=== PATIENT | female | born 1960 | race Caucasian/White ===

== ENCOUNTER 2023-01-26 05:42 | Emergency (ER) | payer OTHER ==
--- NOTE | 2023-01-26 07:29 | ED Physician Documentation ---
PD HPI Fall - Stated complaint Stated Complaint: GLF - Chief complaint Chief Complaint: General - History obtained from History obtained from: Patient - History of Present Illness Mechanism of injury: Tripped Fall distance: Standing position Timing - onset: Last night (fell to right side and landed on hip/gluteal and shoulder on right. Pain with walking.) Injury(ies) location: Right Upper Extremity (scapular area of shoulder), Right Lower Extremity (lateral hip/gluteal and ramus area. With local firm swelling and tender.). No: Head, Neck, Chest, Abdomen Review of Systems Neurologic: denies: Focal weakness, Numbness PD PAST MEDICAL HISTORY - Past Medical History Cardiovascular: None Neuro: None - Present Medications Home Medications: Ambulatory Orders Medication Instructions Recorded Confirmed Ascorbic Acid [Vitamin C] 01/26/23 Aspirin [[place] Aspirin] 01/26/23 Atorvastatin [Lipitor] 01/26/23 Empagliflozin [Jardiance] 01/26/23 Empagliflozin [Jardiance] 25 mg PO 01/26/23 Estradiol [Estrace] 0.5 mg PO 01/26/23 Ezetimibe [Zetia] 10 mg PO QD 01/26/23 01/26/23 Fluticasone/Salmeterol [Advair 01/26/23 250-50 Diskus] Insulin Glargine [Lantus Solostar] 01/26/23 Losartan [Cozaar] 50 mg PO DAILY 01/26/23 01/26/23 Magnesium 01/26/23 Multivitamin 01/26/23 Pantoprazole [Protonix] 0 mg 01/26/23 Torsemide 01/26/23 buPROPion HCL [Wellbutrin Xl] 300 mg PO 01/26/23 metFORMIN [Glucophage] 1,000 mg PO BIDWM 01/26/23 01/26/23 - Allergies Allergies/Adverse Reactions: Allergies Allergy/AdvReac Type Severity Reaction Status Date / Time lisinopril AdvReac Unknown Verified 01/26/23 06:10 PD ED PE NORMAL - Vitals Vital signs reviewed: Yes - General General: Alert and oriented X 3, No acute distress, Well developed/nourished - HEENT HEENT: Atraumatic - Neck Neck: Supple, no meningeal sign, No bony TTP - Respiratory Respiratory: Other (no chestwall tenderness) - Abdomen Abdomen: Soft, Non tender - Derm Derm: Normal color, Warm and dry - Extremities Extremities: Other (right shoulder without bony tenderness and has good ROM. Some tender over suprascapular area. Right hip with good rotation and flexion. Has rounded swelling and tenderness posterior to greater trochanter c/w hematoma. Right ischial ramus area tender. spinal area not tender. ) - Neuro Neuro: Alert and oriented X 3, No motor deficit, No sensory deficit, Normal speech Results - Vitals Vitals: Vital Signs - 24 hr 01/26/23 01/26/23 06:01 10:25 Temperature 36.7 C Heart Rate 86 58 L Respiratory 20 17 Rate Blood Pressure 132/70 H 142/77 H O2 Saturation 98 97 Oxygen O2 Source Room air - Rads (name of study) pelvic CT Relevant Findings:: Prelim report reviewed (no fractures. ), EMP independent interpretation of test PD Medical Decision Making - ED course Complexity details: reviewed results (no fracture), considered differential (accidental fall to right side. Shoulder without bony abnormality and seems muscular injury scapular area. Right hip with concern for pelvic/ramus injury and also with clinical soft tissue hematoma. To get imaging. Xray will not be reliable to will get CT. ), d/w patient Departure - Departure Disposition: 01 Home, Self Care Clinical Impression: Fall from slip, trip, or stumble, Contusion of right scapular region, Thigh contusion, Hematoma Condition: Stable Record reviewed to determine appropriate education?: Yes Instructions: ED Hematoma Follow-Up: FADI DELATORRE MD [Primary Care Provider] - Comments: Your CT scan does not show any bony abnormalities/fractures. There is soft tissue swelling in the area clinically evident. The swelling locally on the side of the thigh/hip is some bruising under the skin/hematoma. This should resorb on its own over a week or more. Some of the blood may hurtado downward with gravity and you may have bruising show down the side of the leg several days from now. Activity as tolerated. No harm done with being up and around. It will be sore of course. Tylenol and/or ibuprofen as needed for pains. Ice or cool towels to the area today to reduce swelling initially but then warm towels or heat starting tomorrow to help the hematoma blood resorb more easily. Follow-up with your primary care as needed. Forms: PCP List Discharge Date/Time: 01/26/23 11:33
[2023-01-26] MEDS ORDERED: ACETAMINOPHEN 325 MG TABLET PO STA (07:42)
[2023-01-26] MEDS ORDERED: IBUPROFEN 600 MG TABLET PO STA (07:42)
--- NOTE | 2023-01-26 10:16 | CT Report ---
PROCEDURE: PELVIS WO INDICATIONS: fall, right pelvic pain TECHNIQUE: Noncontrast 3 mm axial sections acquired through the bony pelvis, with coronal and sagittal reformatt ing. For radiation dose reduction, the following was used: automated exposure control, adjustment of mA and/or kV according to patient size. COMPARISON: None. FINDINGS: Image quality: Excellent. Bones: Mild periarticular osteophyte formation at the bilateral hip joints. No fracture nor osseous lesion. Soft tissues: Visualized soft tissues are grossly unremarkable. IMPRESSION: No acute fracture. No osseous lesion. If symptoms and/or clinical suspicion for pathology continue, f urther assessment with MRI or bone scan) is recommended for further assessment. Reviewed by: Sylwia Reilly MD on 01/26/2023 10:15 AM PDT Approved by: Sylwia Reilly MD on 01/26/2023 10:15 AM PDT Station ID: [id number]
[2023-01-26 10:26] VITALS: BP 142/77; O2SAT 97
== END 2023-01-26 11:33 | disposition home or self-care (01) ==
LOC: ED 05:42 → EDSEX 05:42 → ED 11:33
DX: S40.011A Contusion of right shoulder, initial encounter (principal); S70.11XA Contusion of right thigh, initial encounter; W01.198A Fall on same level from slipping, tripping and stumbling with subsequent striking against other object, initial encounter; Y93.01 Activity, walking, marching and hiking; Y92.9 Unspecified place or not applicable
CPT/HCPCS: 72192; 99283; 99284; A9270